=== PATIENT | female | born 1985 | race African-American/Black ===

== ENCOUNTER 2018-02-10 04:45 | Emergency (ER) | payer SELFPAY ==
[~2018-02-10] VITALS: Ht 167.6 cm; Wt 94.3 kg
[2018-02-10 04:58] VITALS: BP 152/100
[2018-02-10] MEDS ORDERED: ACETAMINOPHEN 500 MG TABLET PO ONE ×2 (05:12→05:15)
[2018-02-10] MEDS ORDERED: CIPR7.5D RIGHT EAR (05:14)
--- NOTE | 2018-02-10 05:18 | ED.ADGEN ---
Past History Past Medical History: No Pertinent History Past Surgical History: No Surgical History Alcohol Use: None Drug Use: None Adult General Chief Complaint Chief Complaint R earache HPI HPI Patient is a 32-year-old -[place] female presents with right earache for several hours. Fullness in right ear, also reports nasal congestion and sore throat. No fever, loss of urine. Patient is taking ibuprofen Tylenol for pain. Review of Systems Review of Systems Review symptoms as per history of present illness [] All other systems were reviewed and found to be within normal limits, except as documented in this note. Current Medications Current Medications Current Medications Medications (Trade) Dose Ordered Sig/Fidel Start Time Stop Time Status Last Admin Dose Admin Acetaminophen (Tylenol) 1,000 mg 1X ONCE 02/10/18 05:15 02/10/18 05:16 UNV 02/10/18 05:14 1,000 MG Physical Exam Physical Exam Constitutional: Well developed, well nourished, no acute distress, non-toxic appearance. [] HENT: Normocephalic, atraumatic, bilateral external ears normal, tenderness to right tragus, minimal swelling of right auditory canal. Oropharynx moist, no oral exudates, nose normal. [] Eyes: PERRLA, EOMI, conjunctiva normal, no discharge. [] Psychologic: Affect anxious[] Current Patient Data Vital Signs Vital Signs Date Time Temp Pulse Resp B/P (MAP) Pulse Ox O2 Delivery O2 Flow Rate FiO2 02/10/18 04:58 98.0 82 20 97 Room Air EKG EKG [] Radiology/Procedures Radiology/Procedures [] Course & Med Decision Making Course & Med Decision Making Pertinent Labs and Imaging studies reviewed. (See chart for details) [Right otitis externa with effusion] Final Impression Final Impression [#1 right otitis externa] Dragon Disclaimer Dragon Disclaimer This electronic medical record was generated, in whole or in part, using a voice recognition dictation system. JAMAR CRYSTAL DO Feb 10, 2018 05:18
== END 2018-02-10 05:22 | disposition home or self-care (01) ==
LOC: ER 04:45
DX: H60.91 Unspecified otitis externa, right ear (principal); H65.91 Unspecified nonsuppurative otitis media, right ear
CPT/HCPCS: 99283